=== PATIENT | female | born 1995 | race Caucasian/White ===

== ENCOUNTER → 2018-04-19 17:07 | Outpatient (CLI) | payer OTHER, MEDICAID, SELFPAY | PROVIDERS: Family Provider Family Medicine; PCP Family Medicine; Visit Provider Family Medicine | DX: Z34.92 Encounter for supervision of normal pregnancy, unspecified, second trimester (principal); Z3A.14 14 weeks gestation of pregnancy; Z53.9 Procedure and treatment not carried out, unspecified reason ==

== ENCOUNTER → 2018-04-22 11:50 | Outpatient (CLI) | payer OTHER, MEDICAID, SELFPAY ==
--- NOTE | 2018-04-22 11:53 | DI.US.S_ITS ---
PROCEDURE: US OB LIMITED INDICATIONS: 23 year-old female; assess dates. OUTSIDE/PRIOR DATING DATA: Last menstrual period (LMP): Not known LMP-based estimated date of delivery (JOSE): Not known First dating scan (date and location): Present study Estimated date of delivery (JOSE) from first dating scan: 10/12/18. TECHNIQUE: Real-time scanning was performed of the fetus, with image documentation and biometric measurements. Endovaginal scanning: No COMPARISON: None. FINDINGS: General: A single living intrauterine gestation is present. Presentation: Variable. Placenta: Placental position is posterior fundal, without previa. Amniotic fluid index: Subjectively normal heart rate: 150 beats per minute. Maternal cervical canal: 3.4 cm long. biometrics: Biparietal diameter: 3.1 cm equals 15 weeks 5 days. Head circumference: 10.9 cm equals 15 weeks 2 days. Abdominal circumference: 8.9 cm equals 15 weeks one day. Femur length: 1.7 cm equals 15 weeks zero days. Estimated gestational age from initial scan: not applicable. Composite gestational age from present scan: 15 weeks 2 days Estimated weight and percentile: N./A. Measurement variability for biometric dating: +/- 7 days from 14 weeks to 15 weeks 6 days gestation, +/- 10 days from 16 weeks to 21 weeks 6 days gestation, +/- 2 weeks from 22 weeks to 27 weeks 6 days gestation, +/- 3 weeks for 28 weeks gestation or later. weight reference: 4500 g or EFW >90/95% is considered macrosomia or large for gestational age. EFW <10% is small for gestational age. EFW 5% or less is considered intra-uterine growth restriction. Other: Anatomic survey was unable to be performed, secondary to early gestational age. IMPRESSION: Single living intrauterine gestation, with ultrasound-derived estimated gestational age of 15 weeks 2 days, +/-7 days. With the same measurement variability, ultrasound-derived estimated date of delivery is October 12, 2018. Dictated by: Mihir RHODES Interpreted: Fernando Barrett MD on 04/22/2018 at 15:44 Approved by: Geovanny Croft M.D. on 04/25/2018 at 10:18
[2018-04-22 13:01] LABS: Add Manual Diff / Slide Review NO; Basophils Percent Auto 0.6 % (0-2); Eosinophils Percent Auto 0.7 % (2-4); Hematocrit 37.7 % (36-46); Hemoglobin 13.1 g/dL (12.0-16.0); Lymphocytes Percent Auto 24.8 % (25-40); Mean Corpuscular HGB Conc 34.7 % (30-36); Mean Corpuscular Hemoglobin 30.4 PG (26-34); Mean Corpuscular Volume 87.6 fL (80-100); Monocytes Percent Auto 7.5 % (3-14); Neutrophils Absolute Auto 5200 /uL (3000-5900); Neutrophils Percent Auto 66.4 % (50-75); Platelet Count 156 X10^3/uL (150-400); Red Cell Distribution Width 13.5 % (11.6-14.8); White Blood Cell Count 7.9 X10^3/uL (4.5-11.0)
[2018-04-22 13:08] LABS: Appearance Urine UA CLEAR; Bilirubin Urine UA NEGATIVE (NEGATIVE); Color Urine UA YELLOW; Glucose Urine UA NEGATIVE (Normal); Ketones Urine UA NEGATIVE (NEGATIVE); Leukocyte Esterase Urine UA NEGATIVE (NEGATIVE); Nitrite Urine UA Negative (Negative); Occult Blood Urine UA NEGATIVE (Negative); Protein Urine UA NEGATIVE (Negative); Specific Gravity Urine UA <=1.005 (1.000-1.035); Urobilinogen Urine UA 0.2 E.U./dL (0.2)
[2018-04-22 16:40] LABS: Hepatitis B Surface Antigen NEGATIVE s/c (NEGATIVE); Rubella Antibody IgG 43.1 IU/mL (>15)
[2018-04-22 17:14] LABS: HIV 1 and 2 Antibody NEGATIVE (NEGATIVE); Hep C Virus Ab w/Reflex Quant NEGATIVE s/c (NEGATIVE)
[2018-04-26 16:05] LABS: HSV 2 IGG AB < 0.90 index (< 0.90)
== END ==
PROVIDERS: Family Provider Family Medicine; PCP Family Medicine; Visit Provider Family Medicine
DX: Z34.92 Encounter for supervision of normal pregnancy, unspecified, second trimester (principal); Z3A.15 15 weeks gestation of pregnancy
CPT/HCPCS: 36415; 76815; 80055; 81003; 86695; 86696; 86703; 86787; 86803; 86850; 86900; 86901

== ENCOUNTER → 2018-05-10 15:03 | Outpatient (CLI) | payer OTHER, MEDICAID, SELFPAY ==
[2018-05-16 14:30] LABS: AFP, Serum 52.4 ng/mL; Calc Gestational Age 17.9; Cigarette Smoker NO; Donated Egg NOT GIVEN; Donor Egg Age NOT GIVEN; Estriol, Free 0.99 ng/mL; Inhibin A, Dimeric 174 pg/mL; Maternal Weight 122 lbs; Number of Fetuses NOT GIVEN; Previous Pregnancy Down Syndro NOT GIVEN; hCG, MoM 0.77; hCG, Serum 21.7 IU/mL
== END ==
PROVIDERS: Family Provider Family Medicine; PCP Family Medicine; Visit Provider Family Medicine
DX: Z36.9 Encounter for antenatal screening, unspecified (principal); Z3A.17 17 weeks gestation of pregnancy
CPT/HCPCS: 36415; 82105; 82677; 84702; 86336

== ENCOUNTER → 2018-05-26 10:11 | Outpatient (CLI) | payer OTHER, MEDICAID, SELFPAY ==
--- NOTE | 2018-05-26 10:12 | DI.US.S_ITS ---
PROCEDURE: US OB >= 14 WEEKS FETUS INDICATIONS: ANATOMY OUTSIDE/PRIOR DATING DATA: Last menstrual period (LMP): Not known LMP-based estimated date of delivery (JOSE): Not known First dating scan (date and location): Present study Estimated date of delivery (JOSE) from first dating scan: 10/12/18.. TECHNIQUE: Real-time scanning was performed of the fetus, with image documentation and biometric measurements. Endovaginal scanning: No COMPARISON: [facility], OB [facility], 04/22/2018, 11:59. FINDINGS: General: A single living intrauterine gestation is present. Presentation: Breech. Placenta: Placental position is posterior, without previa. Amniotic fluid index: 14.3 cm, normal range is 5-24 cm. heart rate: 145 beats per minute. Maternal cervical canal: 3.8 cm long. Normal lower limit is 2.5 cm. biometrics: Biparietal diameter: 20 weeks 0 days Head circumference: 19 weeks 3 days Abdominal circumference: 19 weeks 1 day Femur length: 20 weeks 1 day Estimated gestational age from initial scan: 20 weeks 1 day Composite gestational age from present scan: 19 weeks 5 days Estimated weight and percentile: 202 g; 19 percentile Measurement variability for biometric dating: +/- 7 days from 14 weeks to 15 weeks 6 days gestation, +/- 10 days from 16 weeks to 21 weeks 6 days gestation, +/- 2 weeks from 22 weeks to 27 weeks 6 days gestation, +/- 3 weeks for 28 weeks gestation or later. weight reference: 4500 g or EFW >90/95% is considered macrosomia or large for gestational age. EFW <10% is small for gestational age. EFW 5% or less is considered intra-uterine growth restriction. Anatomic survey: Neuro: Ventricles are non-dilated at less than 10 mm. Cisterna magna is normal at 3-11 mm. Cerebellum is normal in size and morphology. Nuchal skin fold: Normal at less than 6 mm between 14-21 weeks gestational age. Face: Facial profile not well seen otherwise normal phase. Spine: No evidence for spina bifida. Heart: 4-chambered heart is present, with normal ventricular outflow tracts. Diaphragm: Diaphragm is intact. Stomach: Left-sided stomach is present. Kidneys: No hydronephrosis. Normal is less than 5 mm in 2nd trimester, less than 7 mm in 3rd trimester. Cord: 3-vessel cord has orthotopic insertion. Bladder: Normal in size. Extremities: All 4 extremities identified. IMPRESSION: 1. Normal interval growth from prior exam. 2. Facial profile not well-seen otherwise normal anatomy. Dictated by: Mihir ALLEN Interpreted: Joshua Best MD on 05/26/2018 at 12:12 Approved by: Joshua Best M.D. on 05/26/2018 at 13:27
== END ==
PROVIDERS: Family Provider Family Medicine; PCP Family Medicine; Visit Provider Family Medicine
DX: Z36.89 Encounter for other specified antenatal screening (principal); Z3A.19 19 weeks gestation of pregnancy
CPT/HCPCS: 76811

== ENCOUNTER → 2018-09-14 14:29 | Outpatient (CLI) | payer OTHER, MEDICAID, SELFPAY ==
[2018-09-15 11:22] LABS: Strep Grp B PCR NEG for Grp B Strep
== END ==
PROVIDERS: Family Provider Family Medicine; PCP Family Medicine; Visit Provider Family Medicine
DX: Z3A.36 36 weeks gestation of pregnancy (principal)
CPT/HCPCS: 87653

== ENCOUNTER → 2018-09-14 15:03 | Outpatient (CLI) | payer OTHER, MEDICAID, SELFPAY ==
[2018-09-14 17:06] LABS: Add Manual Diff / Slide Review NO; Basophils Percent Auto 0.6 % (0-2); Eosinophils Percent Auto 0.7 % (2-4); Hematocrit 33.8 % (36-46); Hemoglobin 11.4 g/dL (12.0-16.0); Lymphocytes Percent Auto 18.7 % (25-40); Mean Corpuscular HGB Conc 33.6 % (30-36); Mean Corpuscular Hemoglobin 29.1 PG (26-34); Mean Corpuscular Volume 86.6 fL (80-100); Monocytes Percent Auto 10.5 % (3-14); Neutrophils Absolute Auto 7300 /uL (3000-5900); Neutrophils Percent Auto 69.5 % (50-75); Platelet Count 185 X10^3/uL (150-400); Red Cell Distribution Width 13.3 % (11.6-14.8); White Blood Cell Count 10.5 X10^3/uL (4.5-11.0)
[2018-09-14 17:28] LABS: GTT (PREG) 1 Hour PP 50gm Dose 84 mg/dL (76-139)
== END ==
PROVIDERS: Family Provider Family Medicine; PCP Family Medicine; Visit Provider Family Medicine
DX: Z34.93 Encounter for supervision of normal pregnancy, unspecified, third trimester (principal); Z3A.36 36 weeks gestation of pregnancy
CPT/HCPCS: 36415; 82950; 85025; 87653

== ENCOUNTER → 2018-09-22 12:46 | Outpatient (CLI) | payer OTHER, MEDICAID, SELFPAY ==
--- NOTE | 2018-09-22 12:49 | DI.US.S_ITS ---
PROCEDURE: US OB LIMITED INDICATIONS: size < dates, growth scan OUTSIDE/PRIOR DATING DATA: Last menstrual period (LMP): Not known LMP-based estimated date of delivery (JOSE): Not known First dating scan (date and location): Present study Estimated date of delivery (JOSE) from first dating scan: 10/12/18... TECHNIQUE: Real-time scanning was performed of the fetus, with image documentation and biometric measurements. Endovaginal scanning: No COMPARISON: [facility], OB LIMITED, 04/22/2018, 11:59. FINDINGS: General: A single living intrauterine gestation is present. Presentation: Vertex. Placenta: Placental position is posterior and lateral, without previa. Amniotic fluid index: 17.5 cm, normal range is 5-24 cm. heart rate: 128 beats per minute. Maternal cervical canal: Not well-seen. biometrics: Biparietal diameter: 36 weeks 2 days Head circumference: 37 weeks 5 days Abdominal circumference: 36 weeks 1 day Femur length: 36 weeks 4 days Estimated gestational age from initial scan: 37 weeks 1 day Composite gestational age from present scan: 36 weeks 5 days Estimated weight and percentile: 2945 g, 39th percentile Measurement variability for biometric dating: +/- 7 days from 14 weeks to 15 weeks 6 days gestation, +/- 10 days from 16 weeks to 21 weeks 6 days gestation, +/- 2 weeks from 22 weeks to 27 weeks 6 days gestation, +/- 3 weeks for 28 weeks gestation or later. weight reference: 4500 g or EFW >90/95% is considered macrosomia or large for gestational age. EFW <10% is small for gestational age. EFW 5% or less is considered intra-uterine growth restriction. Other: Not applicable. IMPRESSION: Normal interval growth. Dictated by: Mihir RHODES Interpreted: Alonso Nassar MD on 09/22/2018 at 15:29 Approved by: Alonso Nassar M.D. on 09/23/2018 at 8:57
== END ==
PROVIDERS: Family Provider Family Medicine; PCP Family Medicine; Visit Provider Family Medicine
DX: O26.843 Uterine size-date discrepancy, third trimester (principal)
CPT/HCPCS: 76815

== ENCOUNTER 2018-10-06 05:00 | Inpatient (IN) | payer OTHER, MEDICAID, SELFPAY ==
[2018-10-06 05:56] LABS: Bilirubin Urine UA NEGATIVE (NEGATIVE); Color Urine UA YELLOW; Glucose Urine UA NEGATIVE (Normal); Ketones Urine UA NEGATIVE (NEGATIVE); Leukocyte Esterase Urine UA 3+ (NEGATIVE); Nitrite Urine UA NEGATIVE (Negative); Occult Blood Urine UA 3+ (Negative); Protein Urine UA NEGATIVE (Negative); Urobilinogen Urine UA 0.2 E.U./dL (0.2)
[2018-10-06 06:01] LABS: Urine Amphetamines Negative (Negative); Urine Barbiturates Negative (Negative); Urine Benzodiazepines Negative (Negative); Urine Cocaine Negative (Negative); Urine MDMA Negative (Negative); Urine Methadone Negative (Negative); Urine Methamphetamines Negative (Negative); Urine Morphine/Opi cutoff 2000 Negative (Negative); Urine Oxycodone Negative (Negative); Urine Phencyclidine Negative (Negative); Urine Tetrahydrocannabinol Positive (Negative); Urine Tricyclic Antidepressant Negative (Negative)
[2018-10-06 06:05] LABS: Appearance Urine UA Slightly Cloudy
[2018-10-06 06:33] LABS: RBC Urine 0-1/HPF (0-5/HPF); Squamous Epithelial Cell Urine >30 /HPF; WBC Urine 1-5/HPF (0-5/HPF)
[2018-10-06 06:34] LABS: Bacteria Urine Many (>30); Culture Indicated Urine Cult Not Indicated
[2018-10-06] MEDS: LACTATED RINGERS 1,000 ML 100 ML IV (06:39)
[2018-10-06 06:55] LABS: Add Manual Diff / Slide Review NO; Basophils Percent Auto 0.5 % (0-2); Eosinophils Percent Auto 0.2 % (2-4); Hemoglobin 11.9 g/dL (12.0-16.0); Lymphocytes Percent Auto 17.8 % (25-40); Mean Corpuscular HGB Conc 32.9 % (30-36); Mean Corpuscular Hemoglobin 27.7 PG (26-34); Mean Corpuscular Volume 84.1 fL (80-100); Monocytes Percent Auto 10.1 % (3-14); Neutrophils Absolute Auto 8900 /uL (3000-5900); Neutrophils Percent Auto 71.4 % (50-75); Platelet Count 150 X10^3/uL (150-400); Red Blood Cell Count 4.28 X10^6/uL (4.0-5.2); Red Cell Distribution Width 13.7 % (11.6-14.8); White Blood Cell Count 12.4 X10^3/uL (4.5-11.0)
[2018-10-06 07:31] VITALS: BP 115/70
[2018-10-06] MEDS: LACTATED RINGERS 1,000 ML 125 ML IV (08:00)
[2018-10-06] MEDS: OXYTOCIN PREMIX 30 UNIT/500 ML PLAST..BAG IV (10:29)
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
--- NOTE | 2018-10-06 13:20 | PM.OBPNLAB ---
Date/Time Date Patient Seen: 10/06/18 Time Patient Seen: 01:20 Pain Control Pain control: tolerating well Pelvic Exam Dilation (cm): 6 Effacement (%): 100 station: 0 Amniotic membrane status: Ruptured Comments: After informed consent, AROM performed with production of clear fluid Contractions Contractions on admission: irregular Monitor mode: External Pitocin rate (mU/min): 3 Contraction frequency (min): 3 Contraction duration (min): 1 Contraction pattern: Regular Contraction intensity: Moderate Status status: Category l Heart Rate Baseline: 140 Monitor Accelerations: Present Monitor Decelerations: Absent Monitor Variability: Moderate Assessment and Plan Comments: 23yo in active labor with pitocin augmentation. AROM performed with production of clear fluid. - Expectant management, anticipate - Pitocin augmentation, titrate as tolerated - GBS negative, no prophylaxis indicated - Epidural for pain control - FHT reassuring
--- NOTE | 2018-10-06 15:28 | PM.OBPRVD ---
Delivery date: 10/06/18 Intrapartal events: None Induction method: none Delivery augmentation: rupture of membranes and pitocin Delivery monitor: external FHT Route of delivery: Episiotomy description: None Laceration description: None Estimated blood loss (mL): 200 Anesthesia type: Epidural Narrative: PROCEDURE: at 39w1d presented in labor and was admitted to Labor and Delivery. The patient progressed through the 1st stage over 9 hours. Labor was augmented with low-dose pitocin, and AROM with production of clear fluid. Pain was controlled with an epidural. The patient progressed through the 2nd stage over 1.5 hours and delivered a viable female infant with APGARs 9/9 at 14:55 via . Nuchal cord x1 was reduced after delivery. The cord was clamped and cut after it stopped pulsating. The perineum and vagina were inspected with no lacerations. PREPROCEDURE DIAGNOSIS: Intrauterine at 39w1d GBS negative RH positive POSTPROCEDURE DIAGNOSIS: Intrauterine at 39w1d, delivered Same as preprocedure LABOR AUGMENTATION: Pitocin, AROM ROM APPEARANCE: Clear BABY A DELIVERY TIME: 14:55 BABY A WEIGHT: 6lb5oz BABY A NUCHAL CORD: x1 PLACENTA DELIVERY TIME: 15:14 PLACENTA APPEARANCE: Intact [place] Baby 1: Infant gender: Female Presentation: vertex position: Left Occiput Transverse Placenta delivery description: Spontaneous cord vessel description: 3 Vessels score (1 min): 9 score (5 min): 9
[2018-10-06] MEDS: IBUPROFEN 600 MG TABLET PO (20:56)
[2018-10-07 04:53] VITALS: TEMP 36.6
[2018-10-07] MEDS: IBUPROFEN 600 MG TABLET PO ×2 (04:53→11:04)
[2018-10-07 05:30] VITALS: TEMP 36.6
--- NOTE | 2018-10-07 13:23 | P.DS_ITS ---
Discharge Providers Date of admission: 10/06/18 05:00 Primary care physician: Indy Leon DO Consults: 10/06/18 16:03 Consult to Pharmacy Picking Technician Routine Comment: Discharge provider: Maggie Singh MD Discharge Date: 10/07/18 Summary Date Patient Seen: 10/07/18 Time Patient Seen: 12:30 Hospital Course: The pt presented in active labor. She progressed to complete dilation with pitocin and AROM for augmentation. She had an epidural for pain control. She delivered a viable baby girl on 10/06/18 without any complications. There were no lacerations to repair. , there were no complications. At the time of discharge she was voiding, ambulating, and passing flatus without difficulty. Her lochia was decreasing appropriately. She was with good latch. He pain was adequately controlled. She will f/u in 6 weeks. Peripartum Data Delivery Method: Natural Vaginal Laceration description: None Episiotomy description: None Procedures: Spontaneous vaginal delivery complications: none [place] 1: Gender: Female Disposition of : home Discharge Diagnosis (1) 39 weeks gestation of : Status: Acute (2) Spontaneous vaginal delivery: Status: Acute Status at Discharge Functional status at discharge: independent ambulation Overall status at discharge: patient is progressing back to baseline Time Spent with Patient Total time spent providing and/or coordinating discharge services: Objective Labs Result Diagrams: 10/06/18 06:35 Discharge Plan Discharge Plan Patient Disposition: Home Discharge Med Rec/Prescriptions Prescriptions: New acetaminophen 325 mg Tablet 650 mg PO Q6HR PRN (Reason: Pain, Mild (1-3)) Qty: 30 RF: 0 benzocaine-menthol [Dermoplast (with menthol)] 20-0.5 % Aerosol 1 spray Topical Q1HR PRN (Reason: perineal pain) Qty: 15 RF: 0 ibuprofen 600 mg Tablet 600 mg PO Q6HR PRN (Reason: Pain, Mild (1-3)) Qty: 30 RF: 0 docusate sodium 250 mg Capsule 250 mg PO DAILY Qty: 30 RF: 0 lanolin [[id number]-L-Bqemck] Cream 1 applic Topical PRN PRN (Reason: Tenderness) Qty: 15 RF: 0 Continue vit no.602-rizn-ywtpo [Classic ] 28 mg iron- 800 mcg tablet 1 tab PO .QD Qty: 90 RF: 3 Follow up/Referrals: Maggie Singh MD [Physician] - 6 Weeks (Follow up appointment made on 11/23/18@2 :[address] Singh.) Indy Leon DO [Primary Care Provider] - Provider Discharge Instructions Diet: Regular Activity: No intercourse for 6 weeks Gradual return to normal activity Skin/Wound/Dressing Care Report to your healthcare provider any signs of infection, such as:: chills, fever, increased pain and unusual drainage Visit Report/Discharge Packet Instructions: DI for Labor and Delivery, Vaginal Stand Alone Forms: Discharge: Care Visit Report Forms: Stroke Signs & Symptoms Discharge Data Primary Care Provider: Indy Leon Attending Provider: Maggie Singh Admit Date/Time: 10/06/18 05:00 Discharges patient from system. Discharge Date/Time: 10/07/18 16:20
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
[2018-10-07 15:33] VITALS: BP 109/72; PULSE 65; RESP 16; TEMP 36.7
== END 2018-10-07 16:20 | disposition home or self-care (01) | DRG 560 ==
PROVIDERS: Admitting Provider Family Medicine; Family Provider Family Medicine; PCP Family Medicine; Visit Provider Family Medicine
DX: O69.81X0 Labor and delivery complicated by cord around neck, without compression, not applicable or unspecified (principal); Z3A.39 39 weeks gestation of pregnancy; Z37.0 Single live birth
CPT/HCPCS: 01967; 59050; 59409; 80305; 81001; 85025; 86850; 86900; 86901; G0379; J2590

== ENCOUNTER 2020-09-12 21:10 | Emergency (ER) | payer OTHER, SELFPAY ==
[2020-09-12 21:19] VITALS: BP 114/73; PULSE 107; RESP 15; TEMP 36.6; O2SAT 95; BMI 19.1
--- NOTE | 2020-09-12 21:24 | DI.RAD.S_ITS ---
PROCEDURE: XR CHEST 2V INDICATIONS: productive cough for 3 weeks TECHNIQUE: 2 views of the chest were acquired. COMPARISON: [facility], , CHEST 2 VIEW, 10/24/2016, 13:24. FINDINGS: Surgical changes and devices: Surgical sutures are again seen in the left upper quadrant in mediastinum.. Lungs and pleura: Lungs are clear. No pleural effusions or pneumothorax. Mediastinum: Mediastinal contours are normal. Heart size is normal. Bones and chest wall: No suspicious bony abnormalities. Soft tissues appear unremarkable. IMPRESSION: No acute cardiopulmonary abnormality. Dictated by: Ramon Santos M.D. on 09/12/2020 at 22:00 Approved by: Ramon Santos M.D. on 09/12/2020 at 22:01
[2020-09-12 21:50] LABS: COVID19 -Nasal RAPID Negative (Negative)
--- NOTE | 2020-09-12 22:13 | ED_ITS ---
HPI - URI/Sore Throat General Chief Complaint: Upper Respiratory Symptoms Stated Complaint: lung issues, difficulty breathing Time Seen by Provider: 09/12/20 21:14 Source: patient Mode of arrival: Ambulatory Limitations: no limitations History of Present Illness HPI Narrative: 25-year-old female smoker with noncontributory medical history presents with her significant in the chief complaint of 3 weeks of hacking cough which is now producing yellowish, greenish sputum. She has had some chills but denies any fever. Denies runny nose, sore throat. Denies nausea, vomiting or diarrhea. Denies any chest pain. She denies exposure 20 persons known to have [place] in. MD Complaint: cough Onset (ago): week(s) Duration: constant Severity: moderate Relieving factors: nothing Exacerbating factors: nothing Description of mucous: yellow Able to tolerate fluids by mouth: Yes Associated symptoms: chills Treatments prior to arrival: none Related Data Previous Rx's Medication Instructions Recorded doxycycline hyclate 100 mg PO BID #20 tab 09/12/20 Review of Systems Constitutional Constitutional: Reports chills, Denies fatigue, Denies fever(s), Denies frequent falls, Denies lethargy and Denies weakness Eyes Eyes: Denies change in vision, Denies eye discharge, Denies irritation and Denies loss of vision ENT Ears, Nose, Mouth, and Throat: Denies change in voice, Denies dizziness, Denies neck pain, Denies sore throat and Denies throat swelling Cardiovascular Cardiovascular: Denies chest pain, Denies irregular heart rhythm, Denies lightheadedness, Denies palpitations, Reports dyspnea, Denies dyspnea on exertion and Denies orthopnea Respiratory Respiratory: Reports cough, Reports excessive phlegm production, Reports dyspnea, Denies dyspnea on exertion and Denies wheezing Gastrointestinal Gastrointestinal: Denies abdominal pain, Denies change in bowel habits, Denies diarrhea, Denies nausea and Denies vomiting Musculoskeletal Musculoskeletal: Denies neck pain and Denies numbness Integumentary/Breasts Skin/Breast: Denies pruritus, Denies erythema, Denies rash and Denies wounds Neurologic Neurologic: Denies behavioral changes, Denies confusion, Denies dizziness, Denies frequent falls, Denies loss of vision, Denies numbness and Denies weakness Psychiatric Psychiatric: Denies anxiety, Denies behavioral changes, Denies confusion, Denies depression, Denies homicidal ideation and Denies suicidal ideation Endocrine Endocrine: Denies fatigue, Denies flushing and Denies palpitations Hematologic/Lymphatic Hematologic/Lymphatic: Denies easy bruising Allergic/Immunologic Allergic/Immunologic: Denies urticaria, Denies throat swelling and Denies wheezing Patient History Social History Smoking Status: Current every day smoker Smoking Status: Current every day smoker Substance Use Type: does not use Exam Narrative Exam Narrative: GENERAL: [25] year old patient appears stated age. Well- nourished, well-developed patient, in mild distress. HEAD: Atraumatic. Normocephalic. EYES: Pupils equal round and reactive. Extraocular motions intact. No scleral icterus. No injection or drainage. ENT: Nose without bleeding, purulent drainage. Throat without erythema, tonsillar hypertrophy or exudate. Airway patent. NECK: Trachea midline. Non tender CARDIOVASCULAR: Regular rate and rhythm without murmurs, gallops, or rubs. RESPIRATORY: Clear to auscultation. Breath sounds equal bilaterally. No wheezes, rales, or rhonchi. GASTROINTESTINAL: Abdomen soft, non-tender, nondistended. EXTREMITIES: No edema or joint tenderness. BACK: Nontender without deformity or crepitance. No flank tenderness. NEURO: AOx3. SKIN: No rash or erythema of visible areas Initial Vital Signs Initial Vital Signs: Vital Signs Temperature 98 F 09/12/20 21:19 Pulse Rate 107 H 09/12/20 21:19 Respiratory Rate 15 09/12/20 21:19 Blood Pressure 114/73 09/12/20 21:19 Pulse Oximetry 95 09/12/20 21:19 Course Orders Ordered: ED Orders 09/12/20 21:24 XR chest 2V Stat 09/12/20 21:25 COVID19 -ED/INPAT/OR/L&D Stat Discontinued Medications Albuterol (Ventolin Hfa Prepack) 1 box MISC SEEINSTR ONE Stop: 09/12/20 22:20 Last Admin: 09/12/20 22:31 Dose: 1 box Documented by: [email or web address] Vital Signs Vital signs: Vital Signs - 8 hr 09/12/20 21:19 09/12/20 22:53 Temperature 98 F Pulse Rate 107 H 85 Respiratory Rate 15 12 Blood Pressure 114/73 103/69 Pulse Oximetry 95 98 MDM - URI/Sore Throat Lab Data Labs: Lab Results 09/12/20 Range/Units 21:25 COVID-19 PCR Negative (Negative) Imaging Data Chest x-ray: Radiologist's Impression: [place] [id number] [place] [id number] XRay Report Signed Patient: Ness Gautam [facility]#: [id number] : 1995Acct:[id number] Age/Sex: 25 / FDate of Service: 09/12/20 Loc: ED Accession Number: [id number] Procedure: XR chest 2V Ordering Provider: Geoff Doty D.O. PROCEDURE: XR CHEST 2V INDICATIONS: productive cough for 3 weeks TECHNIQUE: 2 views of the chest were acquired. COMPARISON: [facility] , CHEST 2 VIEW, 10/24/2016, 13:24. FINDINGS: Surgical changes and devices: Surgical sutures are again seen in the left upper quadrant in mediastinum.. Lungs and pleura: Lungs are clear. No pleural effusions or pneumothorax. Mediastinum: Mediastinal contours are normal. Heart size is normal. Bones and chest wall: No suspicious bony abnormalities. Soft tissues appear unremarkable. IMPRESSION: No acute cardiopulmonary abnormality. Dictated by: Ramon Santos M.D. on 09/12/2020 at 22:00 Approved by: Ramon Santos M.D. on 09/12/2020 at 22:01 Discharge Plan Departure Patient Disposition: Home Clinical Impression: Atypical pneumonia Discharge Date/Time: 09/12/20 22:55 Instructions: DI for Atypical Pneumonia Activity Restrictions/Additional Instructions: *You have been diagnosed with [atypical pneumonia with bronchospasm] *What to do: *Take medications as directed *Follow up with your primary care provider in 2-3 days, call for an appointment. Let them know you were seen in the Emergency Department and that we ask that you be seen in follow up *Return to ER if you should have any new, worsening or concerning symptoms Prescriptions: New doxycycline hyclate 100 mg tablet 100 mg PO BID Qty: 20 RF: 0 Referrals: [facility] [Outside]
[2020-09-12] MEDS: ALBUTEROL HFA PREPACK 1 BOX MISC (22:31)
[2020-09-12 22:53] VITALS: BP 103/69; PULSE 85; RESP 12; O2SAT 98
== END 2020-09-12 22:55 | disposition home or self-care (01) ==
PROVIDERS: Emergency Provider Emergency Medicine
DX: J18.9 Pneumonia, unspecified organism (principal)
CPT/HCPCS: 71046; 87635; 94640; 99281; 99283

== ENCOUNTER 2023-09-13 02:21 | Emergency (ER) | payer SELFPAY ==
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
[2023-09-13 02:27] VITALS: BP 111/70; PULSE 105; RESP 20; TEMP 36.6; O2SAT 97; BMI 18.3
== END 2023-09-13 02:43 | disposition home or self-care (01) ==
PROVIDERS: Emergency Provider Emergency Medicine; Family Provider Family Medicine; PCP Family Medicine
DX: J06.9 Acute upper respiratory infection, unspecified (principal)
CPT/HCPCS: 99281

== ENCOUNTER 2023-09-17 06:50 | Emergency (ER) | payer SELFPAY ==
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
[2023-09-17 07:15] VITALS: BP 105/56; PULSE 87; RESP 14; TEMP 36.7; O2SAT 96; BMI 18.3
[2023-09-17] MEDS: PROPARACAINE 0.5% OPHTH SOL 1 DROPS EYE-RIGHT (07:42)
[2023-09-17] MEDS: FLUORESCEIN 1 MG STRIP EYE-RIGHT (07:43)
[2023-09-17 07:47] VITALS: BP 112/62; PULSE 62; RESP 16; O2SAT 98
== END 2023-09-17 07:48 | disposition home or self-care (01) ==
PROVIDERS: Emergency Provider Emergency Medicine; Family Provider Family Medicine; PCP Family Medicine
DX: H10.31 Unspecified acute conjunctivitis, right eye (principal)
CPT/HCPCS: 99282

== ENCOUNTER 2023-11-24 04:24 | Inpatient (IN) | payer OTHER, MEDICAID, SELFPAY ==
--- NOTE | 2023-11-24 04:48 | DI.US.S_ITS ---
PROCEDURE: US OB LIMITED INDICATIONS: DATES; LABOR; NO CARE OUTSIDE/PRIOR DATING DATA: Last menstrual period (LMP): Unknown. First dating scan (date and location): Not applicable. TECHNIQUE: Real-time scanning was performed of the fetus, with image documentation. COMPARISON: None. FINDINGS: A single living intrauterine gestation is present. Presentation: Vertex. Placenta: Placental position is anterior, without previa. Amniotic fluid index: Not measured, probably low normal heart rate: 116 beats per minute Abdominal circumference is 31.8 cm, corresponding to an age of 35 weeks and 5 days Femur length is 6.8 cm, corresponding to an age of 35 weeks and 1 day. Estimated gestational age is 35 weeks and 3 days.. The head is engaged. Cervix was dilated to 8 cm. IMPRESSION: Single living intrauterine gestation with biometric measurements above. Cervix was dilated to 8 cm. Vertex presentation. Agree with prelim report. Dictated by: Yahir Etienne M.D. on 11/24/2023 at 8:01 Approved by: Yahir Etienne M.D. on 11/24/2023 at 8:04
[2023-11-24 05:27] LABS: Add Manual Diff / Slide Review NO; Basophils Absolute Auto 100 /uL (0-100); Basophils Percent Auto 0.9 % (0-2); Eosinophils Absolute Auto 0 /uL (0-450); Hematocrit 30.3 % (36-46); Hemoglobin 9.6 g/dL (12.0-16.0); Lymphocytes Absolute Auto 2000 /uL (1100-4500); Lymphocytes Percent Auto 32.5 % (25-40); Mean Corpuscular HGB Conc 31.8 % (30-36); Mean Corpuscular Hemoglobin 23.3 PG (26-34); Mean Corpuscular Volume 73.2 fL (80-100); Monocytes Absolute Auto 500 /uL (0-900); Monocytes Percent Auto 7.9 % (3-14); Neutrophils Absolute Auto 3600 /uL (1500-7000); Neutrophils Percent Auto 58.7 % (50-75); Platelet Count 137 X10^3/uL (150-400); Red Blood Cell Count 4.13 X10^6/uL (4.0-5.2); Red Cell Distribution Width 17.4 % (11.6-14.8); White Blood Cell Count 6.2 X10^3/uL (4.5-11.0)
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
--- NOTE | 2023-11-24 06:19 | PM.OBPRVD ---
Events: No Care and Labor < 37 wks Labor & Delivery Delivery date: 11/24/23 Intrapartal Events: Precipitous Labor < 3 hours Cervical ripening method: none Induction method: none Delivery monitor: external FHT and external uterine Route of delivery: Episiotomy description: None L&D Laceration Description: None Estimated blood loss (mL): 400 Anesthesia Type: None Complications: None Narrative: Patient complete and pushed with 1 contraction. At 5:59 a.m., a live female infant delivered spontaneously over an intact perineum in the SHANNAN presentation. No nuchal cord. The remainder of the body delivered without difficulty and was placed on mom's abdomen. Pitocin was given in the IV fluids. The cord was double clamped and cut after it stopped pulsing. Cord bloods were obtained. The placenta delivered intact with a three-vessel cord at 6:14 a.m.. Fundus was massaged to firm. No lacerations. BW 6#1.4oz. Baby stable to nursery. Mom stable to recovery. Baby 1: Infant gender: Female Presentation: vertex Position: Left Occiput Anterior Placenta delivery description: Spontaneous Cord Vessel Description: 3 Vessels and Clamped/Cut (After it stopped pulsing) score (1 min): 7 score (5 min): 7 weight: 6 lb 1.4 oz Plan for aftercare: Routine care
[2023-11-24 06:26] LABS: Hepatitis B Surface Antigen NEGATIVE s/c (NEGATIVE)
[2023-11-24 06:57] LABS: Strep Grp B PCR NEG for Grp B Strep
[2023-11-24 07:03] LABS: Appearance Urine UA CLEAR; Bilirubin Urine UA NEGATIVE (NEGATIVE); Color Urine UA YELLOW; Glucose Urine UA NEGATIVE (Negative); Ketones Urine UA TRACE (NEGATIVE); Leukocyte Esterase Urine UA NEGATIVE (NEGATIVE); Nitrite Urine UA NEGATIVE (Negative); Occult Blood Urine UA TRACE-INTACT (Negative); Protein Urine UA 1+ (Negative); Specific Gravity Urine UA 1.025 (1.000-1.035)
[2023-11-24 07:15] LABS: Ur Creatinine Normal (Normal); Ur Specific Gravity Normal (Normal); Urine pH Normal (Normal)
[2023-11-24 07:16] LABS: UR Morphine/Opiate cutoff 300 Positive (Negative); Urine Cocaine Negative (Negative); Urine Tetrahydrocannabinol Negative (Negative)
[2023-11-24 07:17] LABS: Urine Amphetamines Positive (Negative); Urine Barbiturates Negative (Negative); Urine Benzodiazepines Negative (Negative); Urine MDMA Negative (Negative); Urine Methadone Negative (Negative); Urine Methamphetamines Positive (Negative); Urine Oxycodone Negative (Negative); Urine Phencyclidine Negative (Negative); Urine Tricyclic Antidepressant Negative (Negative)
[2023-11-24 07:23] LABS: Bacteria Urine None Seen; RBC Urine 0-1/HPF (0-5/HPF); WBC Urine 0-1/HPF (0-5/HPF)
[2023-11-24 07:24] LABS: Culture Indicated Urine Cult Not Indicated; Squamous Epithelial Cell Urine 0-1 /HPF (0-5/HPF)
[2023-11-24 08:02] LABS: BUN Creatinine Ratio 12.8 (6-22); Bilirubin Total 0.4 mg/dL (0.2-1.3); Blood Urea Nitrogen 11 mg/dL (7-17); Calcium 8.6 mg/dL (8.4-10.2); Carbon Dioxide 28 mmol/L (22-32); Chloride 100 mmol/L (98-107); Estimated Glomerular Filt Rate > 60 mL/min (>60); Glucose 69 mg/dL (70-100); Sodium 132 mmol/L (137-145)
[2023-11-24 08:03] LABS: Alanine Aminotransferase 21 IU/L (<35); Albumin 2.8 g/dL (3.5-5.0); Albumin Globulin Ratio 0.8 (1.0-2.8); Alkaline Phosphatase 384 U/L (38-126); Globulin 3.6 g/dL (1.7-4.1); Total Protein 6.4 g/dL (6.3-8.2)
[2023-11-24 08:12] VITALS: BP 166/108
[2023-11-24] MEDS: LABETALOL 100 MG TABLET PO (08:12)
[2023-11-24] MEDS: HYDRALAZINE 20 MG/ML VIAL 5 MG IV (08:13)
[2023-11-24 08:15] LABS: HEMOLYSIS < 15 (0-50)
[2023-11-24 08:15] LABS: Creatinine Urine Random 120.2 mg/dL; Protein (Total) Urine Random 78 mg/dL (0-12); Protein Creatinine Ratio Urine 0.64 GRAM/24H
[2023-11-24 14:03] VITALS: BP 110/68
[2023-11-24 14:06] VITALS: BP 110/68; PULSE 69; RESP 14; TEMP 36.1
[2023-11-25 04:38] LABS: RPR Screen Non Reactive (Non Reactive)
[2023-11-26 16:11] LABS: Aspartate Aminotransferase 44 IU/L (14-36)
--- NOTE | 2023-11-27 14:30 | P.DS_ITS ---
Discharge Providers Provider Date of admission: 11/24/23 04:24 Discharge Date: 11/24/23 Primary care physician: Maggie Singh MD Consults: Social work Discharge provider: Therese Baez MD Summary Hospital Course Date Patient Seen: 11/24/23 Time Patient Seen: 15:30 Diagnoses: Estimated gestational age of 35 weeks' No care Heroin/methamphetamine use during the Hospital Course: Patient is a 28-year-old 3 para 3 who presented on November 24, 2023 in active labor at 8 cm dilation. She had not had any care. An ultrasound done estimated the gestation at 35 weeks. She progressed to complete dilation and had a spontaneous vaginal delivery without complication. No lacerations. The was transferred to [facility] in [place]. The patient requested to go once the baby was discharged. Peripartum Data Infant Delivery Method: Natural Vaginal Laceration Description: None Episiotomy description: None Procedures: Spontaneous vaginal delivery complications: none 1: Gender: Female Disposition of : NICU Status at Discharge Cognitive/behavioral status at discharge: oriented Functional status at discharge: independent ambulation Overall status at discharge: patient is progressing back to baseline Time Spent with Patient Time attestation: Total time spent providing and/or coordinating discharge services: Time spent: Less than 30 minutes Objective Labs 11/24/23 05:15 11/24/23 05:15 Labs: Laboratory Results - last 24 hr 11/24/23 05:15 AST 44 H Exam Narrative Exam Narrative: Generally: Patient is sitting up in bed, no acute distress Fundus: Firm at U -3 Extremities: No edema, negative Homans Discharge Plan Discharge Plan Patient Disposition: Home Provider Discharge Comment: Call with fever, chills, or bleeding vaginally more than a pad in an hour Ibuprofen 600 mg every 6 hours as needed Tylenol 650 mg every 6 hours as needed Discharge orders & Medications Prescriptions: Continued vit no.[id number] [Classic ] 28 mg iron- 800 mcg tablet 1 tab PO .QD Qty: 90 3RF acetaminophen 325 mg Tablet 650 mg PO Q6HR PRN (Reason: Pain, Mild (1-3)) Qty: 30 0RF ibuprofen 600 mg Tablet 600 mg PO Q6HR PRN (Reason: Pain, Mild (1-3)) Qty: 30 0RF fluticasone propionate [Flonase Allergy Relief] 50 mcg/actuation spray,suspension 1 spray intranasal BID Qty: 16 0RF Rx Instructions: administer into each nostril Discontinued norgestimate-ethinyl estradiol [Sprintec (28)] 0.25-35 mg-mcg tablet 1 tab PO DAILY Qty: 28 11RF Dermoplast (with menthol) 20-0.5 % Aerosol 1 spray Topical Q1HR PRN (Reason: perineal pain) Qty: 15 0RF docusate sodium 250 mg Capsule 250 mg PO DAILY Qty: 30 0RF Seh-I-Vhylrp Cream 1 applic Topical PRN PRN (Reason: Tenderness) Qty: 15 0RF No Action doxycycline hyclate 100 mg tablet 100 mg PO BID Qty: 20 0RF Follow up/Referrals: Therese Baez MD [Physician] - 01/07/24 11:00 am Diet/Activity/Treatments Diet: Regular Activity: Nothing in the vagina for 6 weeks Skin/Wound/Dressing Care Report to your healthcare provider any signs of infection, such as:: chills, fever, increased pain and unusual drainage Visit Report/Discharge Packet Instructions: DI for Labor and Delivery, Vaginal Stand Alone Forms: Patient Portal/API, Stroke Signs & Symptoms Discharge Data Primary Care Provider: Maggie Singh
== END 2023-11-24 13:50 | disposition home or self-care (01) | DRG 560 ==
PROVIDERS: Student in an Organized Health Care Education/Training Program; Admitting Provider Obstetrics & Gynecology; Family Provider Family Medicine; PCP Family Medicine; Referring Provider Obstetrics & Gynecology; Visit Provider Obstetrics & Gynecology
DX: O60.14X0 Preterm labor third trimester with preterm delivery third trimester, not applicable or unspecified (principal); F19.90 Other psychoactive substance use, unspecified, uncomplicated; O99.324 Drug use complicating childbirth; O99.334 Smoking (tobacco) complicating childbirth; Z37.0 Single live birth; Z3A.35 35 weeks gestation of pregnancy
CPT/HCPCS: 36415; 59050; 59409; 76815; 80053; 80055; 80305; 81001; 82570; 84156; 86850; 86900; 86901; 87653; G0379; J0360

== ENCOUNTER 2024-04-09 03:50 | Emergency (ER) | payer OTHER, MEDICAID, SELFPAY ==
[2024-04-09 04:01] VITALS: BP 108/59; PULSE 82; RESP 14; TEMP 36.6; O2SAT 100; BMI 21.6
--- NOTE | 2024-04-09 04:05 | DI.RAD.S_ITS ---
PROCEDURE: XR WRIST RT MIN 3V INDICATIONS: pain unknown source of injury TECHNIQUE: 4 views of the wrist were acquired. COMPARISON: None. FINDINGS: Bones: No fractures or dislocations. No suspicious bony lesions. Soft tissues: No suspicious soft tissue calcifications. IMPRESSION: No acute wrist fracture or dislocation. No discrepancies from preliminary reading. Dictated by: Quinn Woody M.D. on 04/09/2024 at 8:55 Approved by: Quinn Woody M.D. on 04/09/2024 at 8:56
--- NOTE | 2024-04-09 04:06 | DI.RAD.S_ITS ---
PROCEDURE: XR FOREARM RT 2V INDICATIONS: pain, unknown source of injury TECHNIQUE: 2 views of the forearm were acquired. COMPARISON: None. FINDINGS: Bones: No fractures or dislocations. No suspicious bony lesions. Soft tissues: No suspicious soft tissue calcifications or masses. IMPRESSION: Unremarkable radiographic examination of right forearm. No discrepancies. Dictated by: Quinn Woody M.D. on 04/09/2024 at 8:56 Approved by: Quinn Woody M.D. on 04/09/2024 at 8:56
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
[2024-04-09] MEDS: ACETAMINOPHEN 325 MG TABLET 650 MG PO (04:41)
== END 2024-04-09 04:49 | disposition home or self-care (01) ==
PROVIDERS: Emergency Provider Emergency Medicine; Family Provider Family Medicine; PCP Family Medicine
DX: M79.631 Pain in right forearm (principal)
CPT/HCPCS: 73090; 73110; 99283